=== PATIENT | female | born 1940 | race Caucasian/White ===

== ENCOUNTER 2017-02-02 20:40 | Observation (INO) | payer MEDICARE, OTHER ==
--- NOTE | 2017-02-02 21:39 | EDM.PDOC ---
ED HPI GENERAL MEDICAL PROBLEM - General Chief Complaint: General Stated Complaint: abd pain Time Seen by Provider: 02/02/17 20:40 Source of Information: Reports: Patient History Limitations: Reports: No Limitations - History of Present Illness INITIAL COMMENTS - FREE TEXT/NARRATIVE: This patient is a 76 year old female that presents to the ER. Patient reports that for the past 2 weeks she has had a pain in her right lower back, urinary urge, and right lower abdominal pain that comes and goes. She reports that she was seen by PCP on Saturday. Patient reports that this afternoon her abdominal pain and urge to urinate increased. Patient reports she was also nauseated earlier today. She reports that here in the ER the pain is not as bad and the nausea has resolved. Patient is alert and oriented. She denies [place], dizziness, v , d, f, cp, soa, vaginal bleeding, discharge, pelvic pain. Onset Date: 01/19/17 Duration: Week(s): (2), Getting Worse Location: Reports: Abdomen, Back, Radiates to (Right abdomen) Improves with: Reports: None Worsens with: Reports: None Associated Symptoms: Reports: Nausea/Vomiting. Denies: Confusion, Chest Pain, Cough, cough w sputum, Diaphoresis, Fever/Chills, Headaches, Loss of Appetite, Malaise, Rash, Seizure, Shortness of Breath, Syncope, Weakness Right Flank Pain Score (Numeric/FACES): 6 - Related Data Allergies Allergy/AdvReac Type Severity Reaction Status Date / Time tramadol Allergy Cannot Verified 02/02/17 21:23 Remember Home Meds: Home Meds Bisoprolol Fumarate/HCTZ [Ziac 10-6.25 MG] 0.5 tab PO DAILY 02/02/17 [History] Diltiazem HCl [Diltiazem 24Hr Cd] 240 mg PO DAILY 02/02/17 [History] Spironolactone [Aldactone] 50 mg PO DAILY 02/02/17 [History] Past Medical History Cardiovascular History: Reports: Hypertension Gastrointestinal History: Reports: Cholelithiasis Genitourinary History: Reports: Renal Calculus Musculoskeletal History: Reports: Back Pain, Chronic Endocrine/Metabolic History: Reports: Obesity/BMI 30+ - Past Surgical History GI Surgical History: Reports: Cholecystectomy Musculoskeletal Surgical History: Reports: Other (See Below) Other Musculoskeletal Surgeries/Procedures:: BACK SURGERY X2 Social & Family History - Family History Family Medical History: Noncontributory - Tobacco Use Smoking Status *Q: Never Smoker Second Hand Smoke Exposure: No ED ROS GENERAL - Review of Systems Review Of Systems: See Below Constitutional: Reports: No Symptoms HEENT: Reports: No Symptoms Respiratory: Reports: No Symptoms Cardiovascular: Reports: No Symptoms Endocrine: Reports: No Symptoms GI/Abdominal: Reports: Abdominal Pain, Nausea : Reports: Flank Pain (Right), Urgency Musculoskeletal: Reports: No Symptoms Skin: Reports: No Symptoms Neurological: Reports: No Symptoms Psychiatric: Reports: No Symptoms Hematologic/Lymphatic: Reports: No Symptoms Immunologic: Reports: No Symptoms ED EXAM, GENERAL - Physical Exam Exam: See Below Exam Limited By: No Limitations General Appearance: Alert, WD/WN, No Apparent Distress Eye Exam: Bilateral Eye: Normal Inspection, PERRL Ears: Normal External Exam, Normal Canal, Hearing Grossly Normal, Normal TMs Ear Exam: Bilateral Ear: Auricle Normal, Canal Normal, TM normal Nose: Normal Inspection, Normal Mucosa, No Blood Throat/Mouth: Normal Inspection, Normal Lips, Normal Gums, Normal Oropharynx, Normal Voice, No Airway Compromise. No: Normal Teeth (some dental decay) Head: Atraumatic, Normocephalic Neck: Normal Inspection, Supple, Non-Tender, Full Range of Motion Respiratory/Chest: No Respiratory Distress, Lungs Clear, Normal Breath Sounds, No Accessory Muscle Use Cardiovascular: Normal Peripheral Pulses, Regular Rate, Rhythm, No Edema, No Gallop, No JVD, No Murmur, No Rub Peripheral Pulses: 2+: Radial (L), Radial (R), Posterior Tibial (L), Posterior Tibial (R) GI/Abdominal: Normal Bowel Sounds, Soft, No Organomegaly, No Distention, No Abnormal Bruit, No Mass, Pelvis Stable, Tender (very mild RLQ) (Female) Exam: Deferred Rectal (Female) Exam: Deferred Back Exam: Normal Inspection, Full Range of Motion, CVA Tenderness (R) (mild). No: CVA Tenderness (L) Extremities: Normal Inspection, Normal Range of Motion, Non-Tender, No Pedal Edema, Normal Capillary Refill Neurological: Alert, Oriented, Normal Cognition, Normal Gait, No Motor/Sensory Deficits Psychiatric: Normal Affect, Normal Mood Skin Exam: Warm, Dry, Intact, Normal Color, No Rash Lymphatic: No Adenopathy Course - Vital Signs Last Recorded V/S: Last Vital Signs Temp 98.9 F 02/02/17 21:23 Pulse 74 02/02/17 21:23 Resp 18 02/02/17 21:23 BP 168/98 H 02/02/17 21:23 Pulse Ox 97 02/02/17 21:23 - Orders/Labs/Meds Orders: Active Orders 24 hr Category Date Time Status Abdomen Pelvis wo Cont [CT] Stat Exams 02/02/17 22:08 Taken CULTURE URINE [RM] Stat Lab 02/02/17 22:08 Received Sodium Chloride 0.9% [Normal Saline] 1,000 ml Med 02/02/17 22:15 Active IV ASDIRECTED Medication Orders Sodium Chloride (Normal Saline) 1,000 mls @ 1,000 mls/hr IV ASDIRECTED CLARE Labs: Laboratory Tests 02/02/17 02/02/17 02/02/17 Range/Units 21:39 21:39 21:52 WBC 18.3 H (5.0-10.0) 10^3/uL RBC 5.23 (4.00-5.50) 10^6/uL Hgb 15.7 (12.0-16.0) g/dL Hct 48.0 H (37.0-47.0) % MCV 91.8 (82.0-94.0) fL MCH 30.0 (27.0-32.0) pg MCHC 32.7 L (33.0-38.0) g/dL RDW Coeff of Arthur 14.5 (11.0-15.0) % Plt Count 255 (150-400) 10^3/uL Neut % (Auto) 62.6 (35-85) % Lymph % (Auto) 30.7 (10-55) % [place] % (Auto) 5.6 (0-16) % Eos % (Auto) 0.9 (0-5) % Baso % (Auto) 0.2 (0-3) % Neut # (Auto) 11.43 H (1.80-7.00) 10^3/uL Lymph # (Auto) 5.62 H (1.00-4.80) 10^3/uL [place] # (Auto) 1.03 H (0.00-0.80) 10^3/uL Eos # (Auto) 0.17 (0.00-0.45) 10^3/uL Baso # (Auto) 0.03 10^3/uL Sodium 140 (136-145) mEq/L Potassium 4.2 (3.5-5.0) mEq/L Chloride 105 (98-106) mEq/L Carbon Dioxide 25 (21-32) mmol/L BUN 25 H (7-18) mg/dL Creatinine 1.5 H (0.6-1.0) mg/dL Est Cr Clr Drug Dosing 28.71 mL/min Estimated GFR (MDRD) 34 L (>=60) mL/min Glucose 142 H (75-99) mg/dL Calcium 9.4 (8.4-10.1) mg/dL Total Bilirubin 0.8 (0.0-1.0) mg/dL AST 18 (15-37) U/L ALT 31 (12-78) U/L Alkaline Phosphatase 85 (46-116) U/L Total Protein 7.3 (6.4-8.2) g/dL Albumin 3.6 (3.4-5.0) g/dL Urine Color Yellow (YELLOW) Urine Appearance Slightly cloudy (CLEAR) Urine pH 5.5 (4.5-8.0) Ur Specific [place] 1.015 (1.003-1.020) Urine Protein Negative (NEGATIVE) mg/dL Urine Glucose (UA) Negative (NEGATIVE) mg/dL Urine Ketones Negative (NEGATIVE) mg/dL Urine Occult Blood Large H (NEGATIVE) Urine Nitrite Negative (NEGATIVE) Urine Bilirubin Negative (NEGATIVE) Urine Urobilinogen 0.2 (0.2-1.0) EU/dL Ur Leukocyte Esterase Negative (NEGATIVE) Urine RBC >100 H (0-5) /HPF Urine WBC 0-5 (0-5) /HPF Ur Squamous Epith Cells Few H (NOT SEEN) /HPF Urine Bacteria Few H (NOT SEEN) /HPF Meds: Medications Generic Name Dose Route Start Last Admin Trade Name Freq PRN Reason Stop Dose Admin Sodium Chloride 1,000 mls @ 1,000 mls/hr 02/02/17 22:15 Normal Saline IV ASDIRECTED CLARE - Radiology Interpretation Free Text/Narrative:: CT Abd/Pelvis: Discussed with radiologist: 4mm Distal ureter stone with minimal hydro. There is also rectal sigmoid wall thickening that may need further evaluation with GI. CT Results Date: 02/03/17 CT Results Time: 23:30 Departure - Departure Time of Disposition: 00:11 Disposition: Refer to Observation Condition: Fair Clinical Impression: Ureteral stone Hydronephrosis Qualifiers: Hydronephrosis type: with ureteral calculous obstruction Qualified Code(s): N13.2 - Hydronephrosis with renal and ureteral calculous obstruction - Discharge Information Referrals: Walt Macario MD [Primary Care Provider] - Forms: ED Department Discharge - My Orders Last 24 Hours: My Active Orders 02/02/17 22:08 Abdomen Pelvis wo Cont [CT] Stat CULTURE URINE [RM] Stat 02/02/17 22:15 Sodium Chloride 0.9% [Normal Saline] 1,000 ml IV ASDIRECTED - Assessment/Plan Last 24 Hours: My Active Orders 02/02/17 22:08 Abdomen Pelvis wo Cont [CT] Stat CULTURE URINE [RM] Stat 02/02/17 22:15 Sodium Chloride 0.9% [Normal Saline] 1,000 ml IV ASDIRECTED Plan: PLEASE SEE RN NOTE FOR PFSH. PLEASE USE ER H&P ADMIT H&P.
[2017-02-02] MEDS ORDERED: Sodium Chloride 0.9% 1,000 ML IV SCH (22:15)
[2017-02-03] MEDS ORDERED: Ondansetron 4 MG/2 ML SDV IV PRN (00:31)
[2017-02-03] MEDS ORDERED: Tamsulosin 0.4 MG Cap.ER PO SCH (00:31)
[2017-02-03] MEDS ORDERED: Morphine 2 MG/ML Syringe IVPUSH PRN (00:31)
[2017-02-03] MEDS ORDERED: Acetaminophen 325 MG Tab PO PRN (00:31)
[2017-02-03] MEDS ORDERED: Acetaminophen/HYDROcodone 325-5 MG Tab PO PRN (00:31)
[2017-02-03] MEDS ORDERED: Enoxaparin 30 MG/0.3 ML Syringe SUBCUT SCH (01:00)
[2017-02-03] MEDS: Sodium Chloride 0.9% 1,000 ML IV SCH ×2 (01:08→08:45)
[2017-02-03] MEDS ORDERED: Spironolactone 25 MG Tab PO SCH (08:00)
[2017-02-03] MEDS ORDERED: Diltiazem 120 MG Cap.CD PO SCH (08:00)
[2017-02-03] MEDS ORDERED: HCTZ PO SCH (08:00)
[2017-02-03] MEDS ORDERED: BISOPROLOL FUMARATE PO SCH (08:00)
--- NOTE | 2017-02-03 10:27 | PCM.DCSUM1 ---
Discharge Summary - Hospital Course HPI Initial Comments: This patient is a 76 year old female that I admitted last night for renal insufficiency and hydronephrosis due to ureter stone distal ureter. The patient today reports that her pain is completely resolved. She reports that she has urinated several times all night long without any pain or urge. She reports that she feels great and is ready to go home. The patient labs yesterday were wbc 18.5, BUN 25, CR 1.5. Today her labs are improved within normal limits of wbc 13.5, BUN 21, CR 1.2. The patient would like to go home. I will discharge her today. Stable. - Discharge Data Discharge Date: 02/03/17 Discharge Disposition: Home, Self-Care 01 Condition: Good - Patient Instructions Diet: Usual Diet as Tolerated Activity: As Tolerated Driving: May Drive Today Showering/Bathing: May Shower Notify Provider of: Fever, Increased Pain, Nausea and/or Vomiting - Discharge Plan Home Medications: Home Meds Bisoprolol Fumarate/HCTZ [Ziac 10-6.25 MG] 0.5 tab PO DAILY 02/02/17 [History] Diltiazem HCl [Diltiazem 24Hr Cd] 240 mg PO DAILY 02/02/17 [History] Spironolactone [Aldactone] 50 mg PO DAILY 02/02/17 [History] Forms: ED Department Discharge Referrals: Walt Macario MD [Primary Care Provider] - - Discharge Summary/Plan Comment DC Time >30 min.: No - General Info Date of Service: 02/03/17 Functional Status: Reports: Pain Controlled, Tolerating Diet, Ambulating, Urinating (without any difficulty. Has returned to her normal per patient. ) - Review of Systems General: Reports: No Symptoms HEENT: Reports: No Symptoms Pulmonary: Reports: No Symptoms Cardiovascular: Reports: No Symptoms Gastrointestinal: Reports: No Symptoms Genitourinary: Reports: No Symptoms Musculoskeletal: Reports: No Symptoms Skin: Reports: No Symptoms Neurological: Reports: No Symptoms Psychiatric: Reports: No Symptoms - Patient Data Vitals - Most Recent: Last Vital Signs Temp 97.4 F 02/03/17 07:32 Pulse 68 02/03/17 10:05 Resp 20 02/03/17 07:32 BP 139/72 02/03/17 10:05 Pulse Ox 94 L 02/03/17 07:32 Weight - Most Recent: 234 lb 14.4 oz I&O - Last 24 hours: Intake & Output 02/02/17 02/03/17 02/03/17 22:59 06:59 14:59 Intake Total 952 Balance 952 Lab Results - Last 24 hrs: Laboratory Results - last 24 hr 02/03/17 02/03/17 Range/Units 08:00 08:00 WBC 13.5 H (5.0-10.0) 10^3/uL RBC 4.68 (4.00-5.50) 10^6/uL Hgb 14.0 (12.0-16.0) g/dL Hct 43.5 (37.0-47.0) % MCV 92.9 (82.0-94.0) fL MCH 29.9 (27.0-32.0) pg MCHC 32.2 L (33.0-38.0) g/dL RDW Coeff of Arthur 14.3 (11.0-15.0) % Plt Count 208 (150-400) 10^3/uL Neut % (Auto) 55.9 (35-85) % Lymph % (Auto) 36.1 (10-55) % [place] % (Auto) 6.4 (0-16) % Eos % (Auto) 1.5 (0-5) % Baso % (Auto) 0.1 (0-3) % Neut # (Auto) 7.54 H (1.80-7.00) 10^3/uL Lymph # (Auto) 4.87 H (1.00-4.80) 10^3/uL [place] # (Auto) 0.86 H (0.00-0.80) 10^3/uL Eos # (Auto) 0.20 (0.00-0.45) 10^3/uL Baso # (Auto) 0.02 10^3/uL Sodium 139 (136-145) mEq/L Potassium 3.9 (3.5-5.0) mEq/L Chloride 107 H (98-106) mEq/L Carbon Dioxide 25 (21-32) mmol/L BUN 21 H (7-18) mg/dL Creatinine 1.2 H (0.6-1.0) mg/dL Est Cr Clr Drug Dosing 32.99 mL/min Estimated GFR (MDRD) 44 L (>=60) mL/min Glucose 118 H (75-99) mg/dL Calcium 8.3 L (8.4-10.1) mg/dL Med Orders - Current: Current Medications Acetaminophen (Tylenol) 650 mg PO Q4H PRN PRN Reason: Pain (Mild 1-3)/fever Hydrocodone Bitart/Acetaminophen ([place] 325-5 Mg) 2 tab PO Q4H PRN PRN Reason: Pain (moderate 4-6) Last Admin: 02/03/17 01:08 Dose: 2 tab Diltiazem HCl (Cardizem Cd) 240 mg PO DAILY [facility] Last Admin: 02/03/17 10:05 Dose: 240 mg Enoxaparin Sodium (Lovenox) 30 mg SUBCUT Q24H [facility] Last Admin: 02/03/17 01:08 Dose: 30 mg Sodium Chloride (Normal Saline) 1,000 mls @ 125 mls/hr IV ASDIRECTED [facility] Last Admin: 02/03/17 08:45 Dose: 125 mls/hr Morphine Sulfate (Morphine) 2 mg IVPUSH Q2H PRN PRN Reason: Pain (severe 7-10) Non-Formulary Medication (Bisoprolol Fumarate/Hctz [Ziac 10-6.25 Mg]) 0.5 tab PO DAILY [facility] Ondansetron HCl (Zofran) 4 mg IV Q4H PRN PRN Reason: Nausea/Vomiting Spironolactone (Aldactone) 50 mg PO DAILY [facility] Last Admin: 02/03/17 10:05 Dose: 50 mg Tamsulosin HCl (Flomax) 0.4 mg PO BEDTIME [facility] Last Admin: 02/03/17 01:08 Dose: 0.4 mg Discontinued Medications Sodium Chloride (Normal Saline) 1,000 mls @ 1,000 mls/hr IV ASDIRECTED [facility] Last Admin: 02/03/17 06:56 Dose: 1,000 mls/hr - Exam General: Reports: Alert, Oriented, Cooperative, No Acute Distress Lungs: Reports: Clear to Auscultation, Normal Respiratory Effort Cardiovascular: Reports: Regular Rate, Regular Rhythm, No Murmurs GI/Abdominal Exam: Soft, Non-Tender, No Organomegaly, No Distention, No Abnormal Bruit, No Mass, Pelvis Stable Back Exam: Reports: Normal Inspection, Full Range of Motion. Denies: CVA Tenderness (L), CVA Tenderness (R) Extremities: Normal Inspection, Normal Range of Motion, Non-Tender, No Pedal Edema, Normal Capillary Refill Skin: Reports: Warm, Dry, Intact Neurological: Reports: No New Focal Deficit Psy/Mental Status: Reports: Alert, Normal Affect, Normal Mood *Q Meaningful Use (DIS) - VTE *Q VTE Criteria *Q: - Stroke *Q Stroke Criteria *Q: - AMI *Q AMI Criteria *Q:
== END 2017-02-03 10:47 | disposition home or self-care (01) ==
LOC: CC.ED 20:40 → UNDOADMOB 02-03 00:26 → CC.MS 02-03 00:26 → UNDODISOB 02-03 10:47
PROVIDERS: ADMIT Nurse Practitioner; ATTEND General Practice
DX: N13.2 Hydronephrosis with renal and ureteral calculous obstruction (principal); N28.9 Disorder of kidney and ureter, unspecified; I10 Essential (primary) hypertension; E66.9 Obesity, unspecified; Z68.30 Body mass index [BMI] 30.0-30.9, adult; Z79.899 Other long term (current) drug therapy; Z88.6 Allergy status to analgesic agent; Z90.49 Acquired absence of other specified parts of digestive tract
CPT/HCPCS: 36415; 74176; 80048; 80053; 81001; 85025; 87086; 96360; 96361; 96372; 99285; A9270; G0378; J1650; J7030; 99236

== ENCOUNTER → 2019-01-09 | Day surgery (SDC) | payer MEDICARE, OTHER ==
[~2019-01-09] MED LIST: Lactated Ringers 1,000 ML IV SCH; Propofol 200 MG/20 ML SDV IV ONE
--- NOTE | 2019-01-09 14:40 | OR ---
DATE OF OPERATION: 01/09/2019 PREOPERATIVE DIAGNOSIS: SCREENING COLONOSCOPY. POSTOPERATIVE DIAGNOSIS: CECAL MASS. SURGEON: Abram Tolbert MD PROCEDURE: FULL-LENGTH COLONOSCOPY WITH BIOPSY X4, POLYP REMOVAL X1. ANESTHESIA: MAC. COMPLICATIONS: None. SPECIMEN: 1. Biopsy x4, cecal mass. 2. Small sessile polyp, splenic flexure. FINDINGS: 1. Full-length colonoscopy. 2. Mild sigmoid diverticulosis. 3. 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 4. Small sessile polyp, hepatic flexure. RECOMMENDATIONS: The patient is going to need followup with Surgery for definitive care and likely hemicolectomy. INDICATIONS: The patient was in for a routine physical and her last colonoscopy was approximately 10 years ago. She at that time had 1 small adenoma. She was overdue for a routine procedure. DESCRIPTION OF PROCEDURE: The patient was prepped and draped, placed in the left lateral decubitus position. A lubricated Olympus colonoscope was inserted and easily advanced to the cecum. We were able to advance the colon easily down to the deep right colon. The cecum had a large fungating mass. It was hard to identify any specific anatomy. This was occupying most or all of the region of the cecum. No bleeding from the sites. We ultimately did 4 biopsies of this mass in usual fashion. The proximal ascending and mid ascending colon were benign. At the hepatic flexure, there was a small sessile polyp removed in its entirety with forceps. The rest of the transverse and descending colons appeared unremarkable. The sigmoid colon had mild diverticular disease throughout into the rectosigmoid junction. No other lesions were seen in that area. The rectal vault was benign. Retroflexion showed no anal lesions. Air was suctioned, scope removed without complication. SPENCER/MIKEL /[id number]
== END ==
LOC: CC.SDS 08:43
PROVIDERS: ATTEND Family Medicine
DX: Z12.11 Encounter for screening for malignant neoplasm of colon (principal); D12.0 Benign neoplasm of cecum; D12.3 Benign neoplasm of transverse colon; E11.9 Type 2 diabetes mellitus without complications; E78.5 Hyperlipidemia, unspecified; I10 Essential (primary) hypertension; Z86.010 Personal history of colon polyps; Z88.5 Allergy status to narcotic agent; Z79.82 Long term (current) use of aspirin; Z79.899 Other long term (current) drug therapy
CPT/HCPCS: 45380; J2704; J7120; 00812; 88305

== ENCOUNTER → 2020-02-25 | Day surgery (SDC) | payer MEDICARE, OTHER ==
[~2020-02-25] MED LIST changes: +Ketamine 200 MG/20 ML MDV ONE; -Propofol 200 MG/20 ML SDV IV ONE; +Propofol 200 MG/20 ML SDV ONE; +fentaNYL 100 MCG/2 ML SDV ONE
[2020-02-25] MEDS: Lactated Ringers 1,000 ML IV SCH (09:11)
--- NOTE | 2020-02-25 11:23 | OR ---
DATE OF OPERATION: 02/25/2020 PREOPERATIVE DIAGNOSIS: HISTORY OF COLON CA. POSTOPERATIVE DIAGNOSIS: HISTORY OF COLON CA. SURGEON: Abram Tolbert MD PROCEDURE: FULL-LENGTH COLONOSCOPY. ANESTHESIA: MAC. COMPLICATIONS: None. SPECIMEN: None. FINDINGS: 1. Full-length colonoscopy. 2. Status post right hemicolectomy. 3. Sigmoid diverticulosis, moderate. RECOMMENDATIONS: Followup colonoscopy in 1 year. 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 She is status post hemicolectomy. She is in for a surveillance scope. DESCRIPTION OF PROCEDURE: The patient was prepped and draped. Placed in the left lateral decubitus position. A lubricated Olympus colonoscope inserted and easily advanced to the anastomosis site in the proximal and mid transverse colon. Site looks excellent. No signs of any recurrence in the immediate area. Upon withdrawal of the scope, throughout the entire length of the colon, I could find no signs of polyps, masses, ulceration, bleeding sites, vascular abnormalities, or signs of colitis. There were no signs of cancer recurrence, significant diverticular disease in the sigmoid colon as prior without any inflammatory changes. Rectal vault appeared benign. Retroflexion of scope in the rectum showed no anal lesions. Air was suctioned. Scope removed without complication. SPENCER/MIKEL /[id number]
== END ==
LOC: CC.SDS 08:51
PROVIDERS: ATTEND Family Medicine
DX: Z12.11 Encounter for screening for malignant neoplasm of colon (principal); K57.30 Diverticulosis of large intestine without perforation or abscess without bleeding; E11.9 Type 2 diabetes mellitus without complications; C91.10 Chronic lymphocytic leukemia of B-cell type not having achieved remission; I10 Essential (primary) hypertension; E78.5 Hyperlipidemia, unspecified; Z98.890 Other specified postprocedural states; Z01.812 Encounter for preprocedural laboratory examination; Z20.828 Contact with and (suspected) exposure to other viral communicable diseases; Z85.038 Personal history of other malignant neoplasm of large intestine; Z90.49 Acquired absence of other specified parts of digestive tract; Z88.8 Allergy status to other drugs, medicaments and biological substances; Z79.82 Long term (current) use of aspirin; Z79.899 Other long term (current) drug therapy
CPT/HCPCS: 00812; 82962; J2704; J3010; J7120

== ENCOUNTER → 2021-03-03 | Day surgery (SDC) | payer MEDICARE, OTHER ==
[~2021-03-03] MED LIST changes: -Ketamine 200 MG/20 ML MDV ONE
--- NOTE | 2021-03-03 09:52 | OR ---
DATE OF OPERATION: 03/03/2021 PREOPERATIVE DIAGNOSIS: HISTORY OF COLON CANCER. POSTOPERATIVE DIAGNOSIS: HISTORY OF COLON CANCER. SURGEON: Abram Tolbert MD PROCEDURE: SURVEILLANCE COLONOSCOPY WITH POLYP REMOVAL X1. ANESTHESIA: MAC. COMPLICATIONS: None. SPECIMEN: Small sessile polyp, mid sigmoid colon, approximately 3 mm. FINDINGS: 1. Full-length surveillance colonoscopy. 2. Status post right hemicolectomy. 3. Moderate sigmoid diverticulosis. 4. Small sessile polyp, sigmoid colon. 5. Poor prep. RECOMMENDATIONS: Followup colonoscopy in 3 years. INDICATIONS: The patient has a history of colon cancer, status post right hemicolectomy for cecal mass. This is her 3rd one-year surveillance scope. DESCRIPTION OF PROCEDURE: The patient was prepped and draped, placed in the left lateral decubitus position. A lubricated Olympus colonoscope was inserted and easily advanced to the hepatic flexure region, where patient has an excellent anastomosis. The bowel prep was poor. There was solid and liquid stool throughout the colon, some of this could be suctioned, but some not and probably only got a good visualization of about 70% of the colon. Upon withdrawal, the anastomosis looks excellent across the transverse and descending colon. No abnormalities were seen. The patient does have moderate diverticulosis of the sigmoid colon without any inflammatory changes. There was one small polyp, flat and sessile in the mid sigmoid area, we removed it with a forceps in its entirety. The rest of the colon looked unremarkable. The rectal vault was benign, retroflexion showed some perianal hemorrhoid disease, otherwise unremarkable. Air was suctioned, scope removed. SPENCER/MIKEL /[id number]
== END ==
LOC: CC.SDS 07:54
PROVIDERS: ATTEND Family Medicine
DX: Z12.11 Encounter for screening for malignant neoplasm of colon (principal); D12.5 Benign neoplasm of sigmoid colon; K57.30 Diverticulosis of large intestine without perforation or abscess without bleeding; K64.9 Unspecified hemorrhoids; I10 Essential (primary) hypertension; E78.5 Hyperlipidemia, unspecified; E11.9 Type 2 diabetes mellitus without complications; Z88.5 Allergy status to narcotic agent; Z85.038 Personal history of other malignant neoplasm of large intestine; Z90.49 Acquired absence of other specified parts of digestive tract; Z79.82 Long term (current) use of aspirin; Z79.899 Other long term (current) drug therapy
CPT/HCPCS: 45380; J7120

== ENCOUNTER 2024-09-12 13:39 | Emergency (ER) | payer MEDICARE, OTHER ==
[2024-09-12 14:36] LABS: APPEARANCE,URINE CLEAR (CLEAR); GLUCOSE,URINE NEGATIVE (NEGATIVE); OCCULT BLOOD,URINE LARGE (NEGATIVE)
[2024-09-12 14:47] LABS: SQUAMOUS EPITHELIAL CELLS,UR OCCASIONAL /HPF (NOT SEEN)
[2024-09-13] MEDS ORDERED: Take Home: Ondansetron 4 MG Tab.DIS, 5 Tab Pack ONE (12:26)
[2024-09-13] MEDS ORDERED: Take Home: Acetaminophen/HYDROcodone 325-5 MG, 2 Tab Pack ONE (12:27)
[2024-09-13] MEDS: Take Home: Ondansetron 4 MG Tab.DIS, 5 Tab Pack PO ONE (12:29)
[2024-09-13] MEDS: Take Home: Acetaminophen/HYDROcodone 325-5 MG, 2 Tab Pack PO ONE (12:29)
== END 2024-09-12 17:00 | disposition home or self-care (01) ==
LOC: CC.ED 13:39
DX: N13.2 Hydronephrosis with renal and ureteral calculous obstruction (principal); I10 Essential (primary) hypertension; Z88.5 Allergy status to narcotic agent; Z79.899 Other long term (current) drug therapy; Z79.82 Long term (current) use of aspirin; Z79.84 Long term (current) use of oral hypoglycemic drugs; Z90.49 Acquired absence of other specified parts of digestive tract
CPT/HCPCS: 74176; 81001; 99284; A9270